=== PATIENT | male | born 1940 | race Caucasian/White ===

== ENCOUNTER 2021-10-02 13:45 | Emergency (ER) | payer MEDICARE, BC ==
[2021-10-02] VITALS (25 sets, daily range): BP systolic 140; BP diastolic 65; PULSE 60; TEMP 98; O2SAT 98–100
[~2021-10-02] VITALS: Ht 172.7 cm; Wt 86.4 kg
[2021-10-02 14:28] LABS: BASO # 0.1 K/mm3 (0.0-0.2); BASO % 0.8 % (0.0-2.0); EOS % 0.4 % (0.0-4.0); GRAN % 71.8 % (42.2-75.2); HEMOGLOBIN 11.6 g/dl (13.5-18.0); LYMPH # 1.6 K/mm3 (1.2-3.4); MEAN CELL VOLUME 93 fl (80.0-100.0); MEAN CORPUSCULAR HEMOGLOBIN 31 pg (27-31); MEAN CORPUSCULAR HGB CONC 34 g/dl (33.0-37.0); MEAN PLATELET VOLUME 9.4 fl (7.4-10.4); MONO # 0.6 K/mm3 (0.1-0.6); MONO % 7.6 % (1.7-9.3); PLATELET COUNT 204 K/mm3 (130-400); RED BLOOD COUNT 3.69 M/mm3 (4.20-5.60); REDCELL DISTRIBUTION WIDTH-CV 12.7 % (11.5-14.5)
[2021-10-02 14:43] LABS: HEMATOCRIT 34.3 % (42.0-52.0)
[2021-10-02 14:51] LABS: ALANINE AMINOTRANSFERASE 13 U/L (0-55); ALBUMIN 3.8 gm/dL (3.4-4.8); ALKALINE PHOSPHATASE 74 U/L (40-150); ANION GAP 14 mmol/L (7-16); AST,SGOT 20 U/L (5-34); BILIRUBIN,TOTAL 1.2 mg/dL (0.2-1.2); BLOOD UREA NITROGEN 17 mg/dL (8-26); CARBON DIOXIDE 21 mmol/L (23-31); CHLORIDE 105 mmol/L (98-107); CREATININE, serum 1.06 mg/dL (0.72-1.25); GLUCOSE 114 mg/dL (70-99); LIPASE 28 U/L (8-78); SODIUM 140 mmol/L (136-145); TOTAL PROTEIN 6.3 gm/dL (6.2-8.1)
[2021-10-02 14:59] LABS: TROPONIN-I < 0.010 ng/mL (0.00-0.033)
[2021-10-02 16:11] LABS: INR 1.6 (0.8-3.0); PROTHROMBIN TIME 18.4 SECONDS (9.7-12.8)
[2021-10-02] MEDS ORDERED: SYNTHROID0.05 MG/TA PO (17:33)
[2021-10-02] MEDS ORDERED: RT SPIRIVA18 MCG IH (17:34)
[2021-10-02] MEDS ORDERED: ELIQUIS 5MG PO (17:34)
[2021-10-02] MEDS ORDERED: MYSOLINE 5050 MG/TAB PO (17:34)
[2021-10-02] MEDS ORDERED: CARDIZEM CD 30300 MG PO (17:34)
== END 2021-10-02 21:20 | disposition short-term general hospital (02) ==
LOC: COL.ER 13:45
PROVIDERS: Emergency Medicine
DX: R07.89 Other chest pain (principal); R00.1 Bradycardia, unspecified; R55 Syncope and collapse; D64.9 Anemia, unspecified; Z87.891 Personal history of nicotine dependence; Z20.822 Contact with and (suspected) exposure to COVID-19
CPT/HCPCS: J1644; J2405; J3010; J7030